=== PATIENT | male | born 1955 | race Caucasian/White ===

== ENCOUNTER 2017-09-03 09:47 | Outpatient (CLI) | payer MEDICAID, OTHER | END 2017-09-03 09:48 | disposition home or self-care (01) | LOC: SC 09:47 | PROVIDERS: ATTEND Internal Medicine Pulmonary Disease | DX: G47.30 Sleep apnea, unspecified (principal); G47.10 Hypersomnia, unspecified; R06.83 Snoring; G47.8 Other sleep disorders | CPT/HCPCS: 99203; 99212 ==

== ENCOUNTER 2017-09-03 20:28 | Outpatient (CLI) | payer MEDICAID, OTHER | END 2017-09-03 20:29 | disposition home or self-care (01) | LOC: SC 20:28 | PROVIDERS: ATTEND Internal Medicine Pulmonary Disease | DX: G47.33 Obstructive sleep apnea (adult) (pediatric) (principal); G47.61 Periodic limb movement disorder; Z68.31 Body mass index [BMI] 31.0-31.9, adult | CPT/HCPCS: 95810 ==

== ENCOUNTER 2017-10-02 09:38 | Outpatient (CLI) | payer OTHER | END 2017-10-02 09:39 | disposition home or self-care (01) | LOC: SC 09:38 | PROVIDERS: ATTEND Nurse Practitioner Family | DX: G47.33 Obstructive sleep apnea (adult) (pediatric) (principal); G47.61 Periodic limb movement disorder | CPT/HCPCS: 99212; 99215 ==

== ENCOUNTER 2017-12-05 21:43 | Outpatient (CLI) | payer OTHER | END 2017-12-05 21:44 | disposition home or self-care (01) | LOC: SC 21:43 | PROVIDERS: ATTEND Internal Medicine Pulmonary Disease | DX: G47.33 Obstructive sleep apnea (adult) (pediatric) (principal); G47.61 Periodic limb movement disorder | CPT/HCPCS: 95811 ==

== ENCOUNTER 2018-01-07 11:15 | Outpatient (CLI) | payer OTHER | END 2018-01-07 11:16 | disposition home or self-care (01) | LOC: SC 11:15 | PROVIDERS: ATTEND Internal Medicine Pulmonary Disease | DX: G47.33 Obstructive sleep apnea (adult) (pediatric) (principal) | CPT/HCPCS: 99212; 99213 ==